=== PATIENT | female | born 1995 | race Caucasian/White ===

== ENCOUNTER → 2018-12-23 | Outpatient (REF) | payer OTHER ==
[2018-12-23 14:35] LABS: BASO # 0.1 10^3/uL (0.0-0.2); BASO % 0.7 % (0.0-1.0); EOS # 0.2 10^3/uL (0.0-0.5); EOS % 2.3 % (0.0-3.0); HEMATOCRIT 40.9 % (36.0-47.0); HEMOGLOBIN 13.4 g/dl (12.0-15.5); LYMPH # 2.3 10^3/uL (1.5-5.0); LYMPH % 33.6 % (24.0-44.0); MEAN CORPUSCULAR HEMOGLOBIN 30.7 pg (27.0-33.0); MEAN CORPUSCULAR HGB CONC 32.8 g/dl (32.0-36.5); MEAN CORPUSCULAR VOLUME 93.8 fl (80.0-96.0); MONO # 0.6 10^3/uL (0.0-0.8); MONO % 8.5 % (0.0-5.0); NEUTROPHILS # 3.8 10^3/uL (1.5-8.5); NEUTROPHILS % 54.6 % (36.0-66.0); PLATELET COUNT, AUTOMATED 345 10^3/uL (150-450); RED BLOOD COUNT 4.36 10^6/uL (4.00-5.40); WHITE BLOOD COUNT 6.9 10^3/uL (4.0-10.0)
[2018-12-23 14:50] LABS: ALBUMIN 4.1 GM/DL (3.2-5.2); ALT/SGPT 19 U/L (12-78); BILIRUBIN,TOTAL 0.4 MG/DL (0.2-1.0); BLOOD UREA NITROGEN 14 MG/DL (7-18); CALCIUM LEVEL 9.7 MG/DL (8.5-10.1); CARBON DIOXIDE LEVEL 28 MEQ/L (21-32); CHLORIDE LEVEL 107 MEQ/L (98-107); CHOLESTEROL LEVEL 151 MG/DL (<200); CHOLESTEROL RISK RATIO 2.745 (<5); COMPLEMENT C3 119 MG/DL (90-180); COMPLEMENT C4 26 MG/DL (10-40); CREATININE FOR GFR 0.69 MG/DL (0.55-1.30); FERRITIN 7 NG/ML (8-252); FREE T4 0.89 NG/DL (0.76-1.46); GLOMERULAR FILTRATION RATE > 60.0 (>60); GLUCOSE, FASTING 83 MG/DL (70-100); HCG, SERUM QUANTITATIVE < 1.0 MIU/ML; HDL CHOLESTEROL 55 MG/DL (>40); IRON (FE) 78 UG/DL (50-170); LDL CHOLESTEROL 79 MG/DL (<100); MAGNESIUM LEVEL 1.8 MG/DL (1.8-2.4); NON-HDL-C 96 MG/DL; RHEUMATOID FACTOR QUANT < 10.0 IU/ML (<15.0); SODIUM LEVEL 140 MEQ/L (136-145); TRIGLYCERIDES LEVEL 87 MG/DL (<150)
[2018-12-23 14:51] LABS: TOTAL 25(OH) VITAMIN D 27.4 NG/ML (30.0-100.0); VITAMIN B12 LEVEL 231 PG/ML (247-911)
[2018-12-23 14:56] LABS: HEMOGLOBIN A1c 5.3 %
[2018-12-23 14:58] LABS: ERYTHROCYTE SEDIMENTATION RATE 6 mm/hr (0-20)
[2018-12-29 14:39] LABS: ANTI DS-DNA AB <1:10 titer (.); ANTINUCLEAR ANTIBODIES DIRECT Negative (Negative)
== END ==
LOC: M LAB REF 14:05
PROVIDERS: ATTEND Nurse Practitioner Family
DX: Z00.01 Encounter for general adult medical examination with abnormal findings (principal); M35.3 Polymyalgia rheumatica; D64.9 Anemia, unspecified

== ENCOUNTER → 2019-01-08 | Outpatient (REF) | payer OTHER, MEDICAID ==
[2019-01-08 19:55] LABS: APPEARANCE, URINE CLOUDY (CLEAR); BACTERIA, URINE AUTO NEGATIVE (NEGATIVE); BILIRUBIN, URINE AUTO NEGATIVE (NEGATIVE); BLOOD, URINE BLOOD 1+ (NEGATIVE); COLOR, URINE YELLOW (YELLOW); GLUCOSE, URINE (UA) AUTO NEGATIVE (NEGATIVE); KETONE, URINE AUTO NEGATIVE (NEGATIVE); LEUKOCYTE ESTERASE, URINE AUTO 2+ (NEGATIVE); MUCUS, URINE SMALL (NEGATIVE); NITRITE, URINE AUTO NEGATIVE (NEGATIVE); PROTEIN, URINE AUTO NEGATIVE (NEGATIVE); RBC, URINE AUTO 2 /HPF (0-3); SPECIFIC GRAVITY URINE AUTO 1.012 (1.002-1.035); SQUAMOUS EPITHELIAL CELL UR AU 24 /HPF (0-6); UROBILINOGEN, URINE AUTO 0.2 mg/dL (0.0-2.0); WBC, URINE AUTO 37 /HPF (0-3)
== END ==
LOC: M LAB REF 18:56
PROVIDERS: ATTEND Nurse Practitioner Family
DX: R30.0 Dysuria (principal)

== ENCOUNTER → 2019-02-06 | Outpatient (REF) | payer OTHER, MEDICAID ==
[2019-02-06 16:22] LABS: URINE PREG TEST NEGATIVE (NEGATIVE)
[2019-02-06 16:24] LABS: APPEARANCE, URINE CLEAR (CLEAR); BACTERIA, URINE AUTO NEGATIVE (NEGATIVE); BILIRUBIN, URINE AUTO NEGATIVE (NEGATIVE); BLOOD, URINE BLOOD 1+ (NEGATIVE); COLOR, URINE YELLOW (YELLOW); GLUCOSE, URINE (UA) AUTO NEGATIVE (NEGATIVE); KETONE, URINE AUTO NEGATIVE (NEGATIVE); LEUKOCYTE ESTERASE, URINE AUTO NEGATIVE (NEGATIVE); MUCUS, URINE SMALL (NEGATIVE); NITRITE, URINE AUTO NEGATIVE (NEGATIVE); PROTEIN, URINE AUTO NEGATIVE (NEGATIVE); RBC, URINE AUTO 2 /HPF (0-3); SPECIFIC GRAVITY URINE AUTO 1.015 (1.002-1.035); SQUAMOUS EPITHELIAL CELL UR AU 4 /HPF (0-6); UROBILINOGEN, URINE AUTO 0.2 mg/dL (0.0-2.0); WBC, URINE AUTO 1 /HPF (0-3)
== END ==
LOC: M LAB REF 16:02
PROVIDERS: ATTEND Physician Assistant Medical
DX: N39.0 Urinary tract infection, site not specified (principal)

== ENCOUNTER 2019-04-22 11:44 | Emergency (ER) | payer OTHER ==
[~2019-04-22] VITALS: Ht 162.6 cm; Wt 55.9 kg
[2019-04-22] MEDS ORDERED: LARI1TAB3 (11:55)
[2019-04-22] MEDS ORDERED: TRAZ-252 (11:55)
[2019-04-22] MEDS ORDERED: LAMO25TA4 (11:55)
[2019-04-22] MEDS ORDERED: ALPR0.25 (11:55)
[2019-04-22] MEDS ORDERED: TAB-TAB3 (11:55)
[2019-04-22] MEDS ORDERED: GABA800T4 (11:55)
[2019-04-22] MEDS ORDERED: D-101000 (11:55)
[2019-04-22 13:45] VITALS: BP 136/93
[2019-04-22] MEDS ORDERED: ALPRAZolam 0.5 MG TAB PO ONE (14:00)
[2019-04-22] MEDS ORDERED: ALPR0.25 PO (14:18)
== END 2019-04-22 14:24 | disposition home or self-care (01) ==
LOC: M ED 11:44
DX: F43.0 Acute stress reaction (principal)

== ENCOUNTER 2019-05-07 11:45 | Outpatient (RCR) | payer OTHER ==
[~2019-05-07 11:45] MED LIST: ALPR0.25; ALPR0.25 PO; D-101000; GABA800T4; LAMO25TA4; LARI1TAB3; TAB-TAB3; TRAZ-252
== END 2019-05-08 ==
LOC: M PT 11:45
PROVIDERS: ATTEND Nurse Practitioner Family
DX: M79.7 Fibromyalgia (principal); M35.3 Polymyalgia rheumatica

== ENCOUNTER 2019-07-18 19:48 | Emergency (ER) | payer OTHER ==
[~2019-07-18] VITALS: Ht 162.6 cm; Wt 52.3 kg
[2019-07-18 19:48] VITALS: BP 119/75
[2019-07-18] MEDS ORDERED: SULF1TAB93 (20:15)
[2019-07-18] MEDS ORDERED: METR-265 (20:15)
[2019-07-18] MEDS ORDERED: PHEN-501 (20:15)
[2019-07-18] MEDS ORDERED: KETOROLAC 60 MG/2 ML VIAL (J1885) IM ONE (20:45)
[2019-07-18 21:00] LABS: HEMATOCRIT 40.9 % (36.0-47.0); HEMOGLOBIN 13.6 g/dl (12.0-15.5); MEAN CORPUSCULAR HEMOGLOBIN 31.1 pg (27.0-33.0); MEAN CORPUSCULAR HGB CONC 33.3 g/dl (32.0-36.5); MEAN CORPUSCULAR VOLUME 93.4 fl (80.0-96.0); PLATELET COUNT, AUTOMATED 329 10^3/uL (150-450); RED BLOOD COUNT 4.38 10^6/uL (4.00-5.40); WHITE BLOOD COUNT 10.1 10^3/uL (4.0-10.0)
[2019-07-18 21:17] LABS: BLOOD UREA NITROGEN 15 MG/DL (7-18); CALCIUM LEVEL 9.7 MG/DL (8.5-10.1); CARBON DIOXIDE LEVEL 27 MEQ/L (21-32); CHLORIDE LEVEL 106 MEQ/L (98-107); CREATININE FOR GFR 0.86 MG/DL (0.55-1.30); GLOMERULAR FILTRATION RATE > 60.0 (>60); GLUCOSE, FASTING 83 MG/DL (70-100); SODIUM LEVEL 138 MEQ/L (136-145)
[2019-07-18 21:20] LABS: HCG, SERUM QUALITATIVE NEGATIVE (NEGATIVE)
[2019-07-18] MEDS ORDERED: NAPROXEN 250 MG TAB PO ONE (21:30)
--- NOTE | 2019-07-18 21:58 | REPVR ---
PROCEDURE INFORMATION: Exam: CT Abdomen And Pelvis Without Contrast Exam date and time: 07/18/2019 9:48 PM Age: 24 years old Clinical indication: Abdominal pain; Flank; Right; Additional info: Right flank pain TECHNIQUE: Imaging protocol: Computed tomography of the abdomen and pelvis without contrast. Radiation optimization: All CT scans at this facility use at least one of these dose optimization techniques: automated exposure control; mA and/or kV adjustment per patient size (includes targeted exams where dose is matched to clinical indication); or iterative reconstruction. COMPARISON: No relevant prior studies available. FINDINGS: Liver: Normal. No mass. Gallbladder and bile ducts: Normal. No calcified stones. No ductal dilation. Pancreas: Normal. No ductal dilation. Spleen: Normal. No splenomegaly. Adrenals: Normal. No mass. Kidneys and ureters: Minimal hyperdensity of the renal pyramids, likely from dehydration. No urolithiasis. Stomach and bowel: Unremarkable. No obstruction. No mucosal thickening. Appendix: Normal appendix. Intraperitoneal space: Small amount of free fluid in the pelvis, most likely physiological pelvic intraperitoneal fluid as a result of patient's premenopausal reproductive status. Vasculature: Unremarkable. No abdominal aortic aneurysm. Lymph nodes: Unremarkable. No enlarged lymph nodes. Bladder: Unremarkable as visualized. Reproductive: Unremarkable as visualized. Bones/joints: Unremarkable. No acute fracture. Soft tissues: Umbilical ornamentation. IMPRESSION: 1. Small amount of free fluid in the pelvis, most likely physiological pelvic intraperitoneal fluid as a result of patient's premenopausal reproductive status. 2. Minimal hyperdensity of the renal pyramids, likely from dehydration. 3. No urolithiasis. 4. Normal appendix. Electronically signed by: Boaz Gil On 07/18/2019 21:58:33 PM
== END 2019-07-18 21:43 | disposition left against medical advice (07) ==
LOC: M ED 19:48
DX: N39.0 Urinary tract infection, site not specified (principal); R31.9 Hematuria, unspecified; R30.0 Dysuria; F17.210 Nicotine dependence, cigarettes, uncomplicated; Z88.0 Allergy status to penicillin; Z79.899 Other long term (current) drug therapy; Z79.3 Long term (current) use of hormonal contraceptives

== ENCOUNTER → 2019-07-20 | Outpatient (REF) | payer OTHER, MEDICAID ==
[~2019-07-20] MED LIST changes: +METR-265; +PHEN-501; +SULF1TAB93
[2019-07-21 13:05] LABS: URINE PREG TEST NEGATIVE (NEGATIVE)
[2019-07-21 13:14] LABS: APPEARANCE, URINE CLOUDY (CLEAR); BACTERIA, URINE AUTO 2+ (NEGATIVE); BILIRUBIN, URINE AUTO NEGATIVE (NEGATIVE); BLOOD, URINE BLOOD 1+ (NEGATIVE); COLOR, URINE YELLOW (YELLOW); GLUCOSE, URINE (UA) AUTO NEGATIVE (NEGATIVE); KETONE, URINE AUTO NEGATIVE (NEGATIVE); LEUKOCYTE ESTERASE, URINE AUTO 3+ (NEGATIVE); MUCUS, URINE SMALL (NEGATIVE); NITRITE, URINE AUTO NEGATIVE (NEGATIVE); PROTEIN, URINE AUTO 2+ mg/dL (NEGATIVE); RBC, URINE AUTO 42 /HPF (0-3); SPECIFIC GRAVITY URINE AUTO 1.018 (1.002-1.035); SQUAMOUS EPITHELIAL CELL UR AU 8 /HPF (0-6); WBC, URINE AUTO TNTC /HPF (0-3)
== END ==
LOC: M LAB REF 12:36
PROVIDERS: ATTEND Nurse Practitioner Family
DX: R30.0 Dysuria (principal)

== ENCOUNTER → 2019-10-22 | Outpatient (CLI) | payer OTHER ==
--- NOTE | 2019-10-22 16:57 | REP ---
REASON: Supervision of normal . PRIORS: None. Transvesical and transvaginal imaging was obtained. Within the endometrial cavity, there is an irregular anechoic structure without increased echoes surrounding it at this time that would be considered consistent with a decidual reaction. No echogenic material is seen in the anechoic structure that would be considered consistent with a pole. No yolk sac is present. The technologist measured the anechoic structure in order to attempt a mean gestational sac diameter, which revealed a 6 week 4 day size. Doppler of this showed no cardiac activity. Evaluation of the maternal adnexal spaces shows no abnormalities. IMPRESSION: There is no evidence of a definite intrauterine at this time. Based on possible mean gestational sac measurements, if an early , then 6 weeks 4 days. Close followup is recommended in order to establish imaging of a viable . A blighted ovum cannot be ruled out at this time.
== END ==
LOC: M PLAIMG 13:10
PROVIDERS: ATTEND Physician Assistant
DX: Z34.80 Encounter for supervision of other normal pregnancy, unspecified trimester (principal)

== ENCOUNTER → 2019-11-20 | Outpatient (REF) | payer OTHER ==
[2019-12-26 10:44] LABS: CHLAMYDIA DNA AMPLIFICATION POSITIVE (NEGATIVE); GC DNA AMPLIFICATION NEGATIVE (NEGATIVE)
[2020-01-07 19:38] LABS: BASO % 0.3 % (0.0-1.0); EOS # 0.2 10^3/uL (0.0-0.5); EOS % 1.6 % (0.0-3.0); HEMOGLOBIN 12.7 g/dl (12.0-15.5); LYMPH # 2.2 10^3/uL (1.5-5.0); LYMPH % 20.5 % (24.0-44.0); MEAN CORPUSCULAR HEMOGLOBIN 32.3 pg (27.0-33.0); MEAN CORPUSCULAR HGB CONC 34.3 g/dl (32.0-36.5); MEAN CORPUSCULAR VOLUME 94.1 fl (80.0-96.0); MONO # 0.8 10^3/uL (0.0-0.8); MONO % 6.9 % (0.0-5.0); NEUTROPHILS # 7.7 10^3/uL (1.5-8.5); NEUTROPHILS % 70.2 % (36.0-66.0); PLATELET COUNT, AUTOMATED 301 10^3/uL (150-450); RED BLOOD COUNT 3.93 10^6/uL (4.00-5.40); WHITE BLOOD COUNT 10.9 10^3/uL (4.0-10.0)
[2020-01-13 18:42] LABS: HEPATITIS C VIRUS ABY INDEX 0.2 INDEX (<0.8); HIV 1&2 SCREEN CENTAUR NEGATIVE (NEGATIVE)
== END ==
LOC: M SFHCWAGY 17:14
PROVIDERS: ATTEND Advanced Practice Midwife
DX: O34.219 Maternal care for unspecified type scar from previous cesarean delivery (principal)

== ENCOUNTER → 2019-12-18 | Outpatient (REF) | payer OTHER | LOC: M LAB REF 16:40 | PROVIDERS: ATTEND Advanced Practice Midwife | DX: Z34.82 Encounter for supervision of other normal pregnancy, second trimester (principal); Z3A.00 Weeks of gestation of pregnancy not specified ==

== ENCOUNTER → 2020-01-20 | Outpatient (REF) | payer OTHER | LOC: M SFHCWAGY 17:04 | PROVIDERS: ATTEND Specialist | DX: Z34.82 Encounter for supervision of other normal pregnancy, second trimester (principal) ==

== ENCOUNTER → 2020-01-26 | Outpatient (CLI) | payer OTHER ==
--- NOTE | 2020-01-27 06:46 | REP ---
INDICATION: ANATOMY COMPARISON: 10/30/2019 TECHNIQUE: Transabdominal obstetrical ultrasound with color Doppler evaluation. FINDINGS: Examination demonstrates a single live intrauterine in variable presentation. motion is identified by technologist. Placenta is noted anterior and grade 0 without evidence for placenta previa or abruption. Amniotic fluid volume is normal. Cervix measures 3.4 cm in length and appears closed. No evidence for nuchal cord. Gestational age by LMP 18 weeks 2 days with BRANDI 06/26/2020. Gestational age by current measurements 18 weeks 3 days with BRANDI 06/26/2019. FHR equals 139 beats per minute. BPD: 4.3 cm 18 weeks 6 days HC: 15.4 cm 18 weeks 3 days AC: 12.7 cm 18 weeks 2 days FL: 2.7 cm 18 weeks 1 day HL: 2.6 cm 18 weeks 2 days HC/AC: 1.22 Estimated weight 231 grams (42ndpercentile). Anatomical assessment demonstrates normal structures including cranium, choroid plexus, cavum, cerebellum/posterior fossa, lungs, diaphragm, stomach, cord insertion/three-vessel cord, kidneys/bladder, spine, and extremities. Limited evaluation of the facial features and heart/ventricular outflow tracts noted. IMPRESSION: 1. Single live intrauterine in variable presentation demonstrating appropriate interval growth and estimated weight. 2. Anatomical limitations as noted above warrant re-evaluation and follow-up. Remainder of the anatomical assessment appears normal. <Electronically signed by Tho Pate > 01/27/20 0622
== END ==
LOC: M WHC 15:25
PROVIDERS: ATTEND Specialist
DX: Z34.82 Encounter for supervision of other normal pregnancy, second trimester (principal)

== ENCOUNTER → 2020-02-15 | Outpatient (CLI) | payer OTHER | LOC: M WHC 09:53 | PROVIDERS: ATTEND Obstetrics & Gynecology | DX: Z36.89 Encounter for other specified antenatal screening (principal); Z3A.21 21 weeks gestation of pregnancy; Z53.9 Procedure and treatment not carried out, unspecified reason ==

== ENCOUNTER → 2020-02-18 | Outpatient (CLI) | payer OTHER ==
--- NOTE | 2020-02-19 05:26 | REP ---
INDICATION: F/U ANATOMY/FACE/VOTS/HEART COMPARISON: 01/26/2020 TECHNIQUE: Transabdominal obstetrical ultrasound with color Doppler evaluation. FINDINGS: Examination demonstrates a single live intrauterine in cephalic presentation. motion is identified by technologist. Placenta is noted anterior and grade 1 without evidence for placenta previa or abruption. Amniotic fluid volume is normal. Cervix measures 3.5 cm in length and appears closed.. Gestational age by LMP 21 weeks 4 days with BRANDI 06/26/2020. Gestational age by current measurements 22 weeks 0 days with BRANDI 06/23/2020. FHR equals 147 beats per minute. Estimated weight 453 grams (56thpercentile). Anatomical assessment demonstrates normal structures including cranium, facial features, four-chamber heart/ventricular outflow tracts, stomach, cord insertion/three-vessel cord, kidneys/bladder. IMPRESSION: Single live intrauterine in cephalic presentation demonstrating appropriate estimated weight and growth. In conjunction with prior examination anatomical assessment is complete and normal. <Electronically signed by Tho Pate > 02/19/20 [id number]
== END ==
LOC: M WHC 10:38
PROVIDERS: ATTEND Obstetrics & Gynecology
DX: Z34.92 Encounter for supervision of normal pregnancy, unspecified, second trimester (principal); Z3A.22 22 weeks gestation of pregnancy

== ENCOUNTER → 2020-03-14 | Outpatient (REF) | payer OTHER | LOC: M PLALAB 11:31 | PROVIDERS: ATTEND Obstetrics & Gynecology | DX: Z3A.25 25 weeks gestation of pregnancy (principal) ==

== ENCOUNTER → 2020-04-12 | Outpatient (REF) | payer OTHER ==
[2020-04-12 13:34] LABS: HEMATOCRIT 32.2 % (36.0-47.0); HEMOGLOBIN 10.7 g/dl (12.0-15.5); MEAN CORPUSCULAR HEMOGLOBIN 32.3 pg (27.0-33.0); MEAN CORPUSCULAR HGB CONC 33.2 g/dl (32.0-36.5); MEAN CORPUSCULAR VOLUME 97.3 fl (80.0-96.0); PLATELET COUNT, AUTOMATED 269 10^3/uL (150-450); RED BLOOD COUNT 3.31 10^6/uL (4.00-5.40)
== END ==
LOC: M PLALAB 09:28
PROVIDERS: ATTEND Obstetrics & Gynecology
DX: Z3A.25 25 weeks gestation of pregnancy (principal)

== ENCOUNTER → 2020-05-27 | Outpatient (CLI) | payer OTHER | LOC: M WHC 13:49 | PROVIDERS: ATTEND Obstetrics & Gynecology | DX: O24.419 Gestational diabetes mellitus in pregnancy, unspecified control (principal); Z3A.00 Weeks of gestation of pregnancy not specified ==

== ENCOUNTER → 2020-05-27 | Outpatient (REF) | payer OTHER | LOC: M SFHCWAGY 16:56 | PROVIDERS: ATTEND Obstetrics & Gynecology | DX: Z34.83 Encounter for supervision of other normal pregnancy, third trimester (principal); Z3A.35 35 weeks gestation of pregnancy | CPT/HCPCS: 87081; 87186; G0463 ==

== ENCOUNTER → 2020-06-01 | Outpatient (REF) | payer OTHER | LOC: M SFHCPLAZ 16:37 | PROVIDERS: ATTEND Advanced Practice Midwife | DX: Z53.9 Procedure and treatment not carried out, unspecified reason (principal); R30.0 Dysuria ==

== ENCOUNTER → 2020-06-14 | Outpatient (CLI) | payer MEDICARE, OTHER ==
--- NOTE | 2020-06-14 17:00 | REP ---
INDICATION: GESTATIONAL DIABETES COMPARISON: 02/18/2020 TECHNIQUE: Transabdominal obstetrical ultrasound with color Doppler evaluation. FINDINGS: Examination demonstrates a single live intrauterine in cephalic presentation. motion is identified by technologist. Placenta is noted anterior and grade 3 without evidence for placenta previa or abruption. Amniotic fluid volume is normal. Cervix measures 3.4 cm in length and appears closed.. Gestational age by LMP and 1st ultrasound 30 weeks 2 days with BRANDI 06/26/2020. Gestational age by current measurements 37 weeks 5 days with BRANDI 06/30/2020. FHR equals 138 beats per minute. BPD: 9.4 cm at 30 weeks 0 days HC: 33.5 cm at 38 weeks 3 days AC: 32.7 cm at 36 weeks 4 days FL: 7.4 cm at 37 weeks 6 days HL: 6.5 cm at 37 weeks 5 days HC/AC: 1.03 Estimated weight 3161 grams (38thpercentile). KASH: 8.8 cm (7.3-23.5) IMPRESSION: Single live advanced gestation in cephalic presentation demonstrating appropriate estimated weight. <Electronically signed by Tho Pate > 06/14/20 [id number]
== END ==
LOC: M WHC 15:29
PROVIDERS: ATTEND Obstetrics & Gynecology
DX: O24.419 Gestational diabetes mellitus in pregnancy, unspecified control (principal); Z3A.37 37 weeks gestation of pregnancy

== ENCOUNTER 2020-06-21 03:36 | Inpatient (IN) | payer OTHER ==
[~2020-06-21] VITALS: Ht 165.1 cm; Wt 75.3 kg
[2020-06-21] VITALS (53 sets, daily range): BP systolic 97–146; BP diastolic 52–89
[2020-06-21] MEDS ORDERED: LR 1,000 ML IV SCH ×2 (04:51→05:24)
[2020-06-21] MEDS ORDERED: LACTATED RINGER'S 1000 ML IV STA ×2 (04:51→05:24)
[2020-06-21 05:08] LABS: HEMATOCRIT 34.7 % (36.0-47.0); HEMOGLOBIN 11.7 g/dl (12.0-15.5); MEAN CORPUSCULAR HEMOGLOBIN 32.7 pg (27.0-33.0); MEAN CORPUSCULAR HGB CONC 33.7 g/dl (32.0-36.5); MEAN CORPUSCULAR VOLUME 96.9 fl (80.0-96.0); PLATELET COUNT, AUTOMATED 280 10^3/uL (150-450); RED BLOOD COUNT 3.58 10^6/uL (4.00-5.40); WHITE BLOOD COUNT 19.2 10^3/uL (4.0-10.0)
[2020-06-21] MEDS ORDERED: VANCOMYCIN 1000MG/20ML VIAL As Ordered ONE (05:24)
--- NOTE | 2020-06-21 05:59 | HPEPDOC ---
Obstetrical History & Physical General Date of Admission 06/21/20 Primary Care Physician: RIA TREADWELL CNM History of Present Illness Patient is a 25-year-old female who is a at 39.1 weeks gestation with an BRANDI of 06/26/20 based off of her first trimester ultrasound. She initiated care in her first trimester at [facility]. Her has been complicated by a history of a prior section for placental abruption, smoking, chlamydia diagnosed during , and [id number] controlled. She presents to L&D with complaints of SROM that is clear and contractions that are painful. She reports active movement. She denies vaginal bleeding. Chief Complaint: Rupture of membranes Information Provided By: Patient Age: 25 : 4 Term: 3 Pre-term: 0 Abortions: 0 Livin Care Care: Good Care Dating Final EDC: Jun 26, 2020 Final EDC by: 1st trimester (US) 1st Trimester Date: Nov 20, 2019 EGA at Admission: 39.1 Antepartum Course Diagnos(e)s prior section A1GDM chlamydia treated in antepartum Height (inches): 65 Admission Weight (lbs.): 165 Past Medical History Past Obstetrical History #1: Past Obstetrical History: Primgravida Date of Delivery: Jan 27, 2010 Gestation: 42 Type of Delivery: Spontaneous Vaginal Del. Sex of Infant: Female (7 lbs 15 oz) Complications: No Past Obstetrical History #2: Past Obstetrical History: Multigravida Date of Delivery: May 29, 2015 Gestation: 40 Type of Delivery: Spontaneous Vaginal Del. 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 BREAST: . ABDOMEN: Gravid and non-tender to touch. FETUS: Is vertex (VTX) by sterile vaginal examination (SVE), fetus is vertex (VTX) by Connor. LUNGS: Clear to auscultation (CTA). EXTREMITIES: No edema. No clonus. Deep tendon reflexes (DTRs) + 2. Laboratory Data 24H LABS Laboratory Tests 2 06/21/20 04:53: Nucleated Red Blood Cells % (auto) 0.0 CBC/BMP Laboratory Tests 06/21/20 04:53 Urine Culture: No Growth Pertinent Laboratoy Data Blood Type: A+ RBC Antibody Screen: Negative HIV: Negative Hepatitis B: Negative Hepatitis C: Negative Rapid Plasma Reagin: Nonreactive Rubella: Nonreactive Chlamydia/Gonorrhea: Negative Group B Streptococcus: Positive Glucose Tolerance Test: 137 Vaginal Examination Dilation: 4 cm Effacement: 80% Station: -1 Cervical Consistency: Soft Cervical Position: Anterior Presentation: Cephalic presentation Position: Vertex (occiput) Assessment Heart Rate (FHR): 145 Variability: Moderate Accelerations: Positive Decelerations: None Tocometer Contractions: Yes Frequency: regular Strength: palpated as moderate Multi-drug resistant Organism: No history of MDRO Assessment/Plan Assessment IUP at 39.1 weeks gestation GBS positive prior section-desires TOLAC Category I FHR tracing SROM Plan Admit to L&D. Patient desires TOLAC. Reviewed risks, benefits and alternatives. She desire to proceed with vaginal delivery. OOB ad rony. Diet: clears. Group B Streptococcus (GBS) positive. Labs and intravenous (IV) per unit protocol. Dr. Acevedo aware of patient being in department. Patient desires an epidural. Anesthesia notified. Lactated Ringers (LR): Bolus 800 mL, then at 125 mL/hr. Anticipate cervical ripening. C-S as appropriate. RIA TREADWELL CNM Jun 21, 2020 05:59
[2020-06-21] MEDS ORDERED: VANCOMYCIN HCL 1,000 MG, VIAL MATE ADAPTER 1 EACH in NS 250 ML IV SCH (06:00)
[2020-06-21] MEDS ORDERED: FENTANYL 2MCG/ML ROPIVACAINE 0.2% IN 0.9% NACL 100ML IVBAG As Ordered ONE (06:13)
[2020-06-21] MEDS ORDERED: LACTATED RINGER'S 1000 ML IV PRN (08:20)
[2020-06-21] MEDS ORDERED: EPIDURAL COMMENT XX SCH (08:20)
[2020-06-21] MEDS ORDERED: ONDANSETRON 4MG/2ML VIAL IV PRN (08:20)
[2020-06-21] MEDS ORDERED: NALOXONE INJ 0.4MG/1ML VIAL (J2310 PER 1MG) IV PRN (08:20)
[2020-06-21] MEDS ORDERED: REFRIGERATOR IV KEYS XX PRN (08:20)
[2020-06-21] MEDS ORDERED: ePHEDrine SULFATE 25 MG/5 ML(5MG/ML) SYRINGE IV PRN (08:20)
[2020-06-21] MEDS ORDERED: EPIDURAL/PCA KEYS XX PRN (08:20)
[2020-06-21] MEDS ORDERED: diphenhydrAMINE 50MG/ML VIAL (J1200) IV PRN (08:20)
[2020-06-21] MEDS ORDERED: FENTANYL/ROPIVACAINE/NACL BAG 100 ML EPIDURAL SCH (08:20)
[2020-06-21] MEDS ORDERED: ONDANSETRON 4MG/2ML VIAL As Ordered ONE (08:28)
[2020-06-21] MEDS: PRENATAL VITAMINS CHEWABLE TABLET PO SCH (09:00)
[2020-06-21] MEDS ORDERED: OXYTOCIN 30 UNITS IN 0.9% NaCl 500ML IV BAG (J2590) As Ordered ONE (13:50)
[2020-06-21] MEDS ORDERED: DOCUSATE SODIUM 100MG CAPSULE PO PRN (14:50)
[2020-06-21] MEDS ORDERED: RHOGAM 300 MCG (1500 IU) INJ (J2790) IM SCH (14:50)
[2020-06-21] MEDS ORDERED: DIBUCAINE 1% OINTMENT 30GM TOP PRN (14:50)
[2020-06-21] MEDS ORDERED: MEASLES,MUMPS,RUBELLA VACCINE INJ (MMR-II) (90707) SC SCH (14:50)
[2020-06-21] MEDS ORDERED: IBUPROFEN 600MG TAB PO PRN (14:50)
[2020-06-21] MEDS ORDERED: ACETAMINOPHEN TAB 650MG DOSE (2X325MG) PO PRN (14:50)
[2020-06-21] MEDS ORDERED: METHYLERGONOVINE MALEATE 0.2 MG/ML VIAL (J2210) IM ONE (14:50)
[2020-06-21] MEDS ORDERED: OXYTOCIN DRIP 30 UNITS in IV 1 EA IV SCH (14:50)
--- NOTE | 2020-06-21 15:03 | DNPDOC ---
[facility] Delivery Note Delivery Note DATE OF DELIVERY: 06/21/2020 PREDELIVERY DIAGNOSIS: 39w1d spontaneous rupture of membranes, active labor, history of prior section POST DELIVERY DIAGNOSIS: Delivered. 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 Evelyn Acevedo MD ANESTHESIA: epidural ESTIMATED BLOOD LOSS: 200 mL. FINDINGS: 7 pound 9 ounce (3430g) female , Score 9/9 DELIVERY SUMMARY: Adis is a 25yo [id number] s/p uncomplicated at 1354 on 06/21/20 after presenting with SROM/active labor at 39w1d. She was 4/80/-2 on admission and received an epidural. She progressed to C/C/0, at which point she began to push. With excellent maternal effort, delivered OA, restituted JORDAN. Right anterior shoulder delivered followed by posterior shoulder and corpus. Infant vigorous with spontaneous cry, apgars 9/9, placed on maternal abdomen and nose/mouth suctioned with bulb suction. After 2 min, cord clamped x2 and cut by FOB. With uterine massage and traction on the cord, placenta delivered spontaneously and intact with 3 vessel centrally inserted cord. Pitocin IV given per protocol. Fundus firm at u-2cm. Inspection of perineum and vagina revealed no lacerations, just some superficial abrasions of the inner labia that were hemostatic with no need for repair. All counts correct x2. Mom and were doing well when I left the room. MD Kristina Reynolds Katrina D MD Jun 21, 2020 15:03
[2020-06-21] MEDS: IBUPROFEN 800 MG TAB PO PRN (17:19)
[2020-06-22] MEDS: IBUPROFEN 800 MG TAB PO PRN ×2 (01:40→14:55)
[2020-06-22 05:54] VITALS: BP 107/56
[2020-06-22] MEDS: PRENATAL VITAMINS CHEWABLE TABLET PO SCH (08:12)
[2020-06-22] MEDS: ACETAMINOPHEN 500 MG TAB PO PRN ×2 (08:13→14:55)
--- NOTE | 2020-06-22 09:24 | IPNPDOC ---
Progress Note Date of Service: Jun 22, 2020 Day#: 1 Progress Note PPD 1 SUBJECT: Adis is a 25yo [id number] s/p uncomplicated at 1354 on 06/21/20 after presenting with SROM/active labor at 39w1d, doing well day # 1. She has been ambulating, voiding spontaneously without issue and tolerating regular diet. Breast feeding without issue. Reports lochia is like a normal period. No f/c/n/v/CP/SOB. OBJECTIVE: VITAL SIGNS: Within normal limits, afebrile. Alert and oriented times three. Abdomen: Fundus firm at U-2. Soft, NTTP. Extremities: no pain with palpation of calves ASSESSMENT: Adis is a 25yo [id number] s/p uncomplicated at 1354 on 06/21/20 after presenting with SROM/active labor at 39w1d, doing well day # 1. Vitals within normal limits, afebrile, hemodynamically stable with no evidence of infection. PLAN: 1. Discharge to home today if baby is able to be discharged 2. Tylenol and Motrin for pain. 3. Encourage breast feeding and ambulation. 4. Minipill for contraception per request, discussed to take at same time every day 5. Routine PP visit in 6 weeks in clinic. 6. Discussed return precautions at length. Evelyn Acevedo MD VS, I&O, 24H, Fishbone Vital Signs/I&O Vital Signs Date Time Temp Pulse Resp B/P (MAP) Pulse Ox O2 Delivery O2 Flow Rate FiO2 06/22/20 05:54 97.6 79 18 107/56 (73) 100 Room Air l I&O- Last 24 Hours up to 6 AM 06/22/20 06:00 Intake Total 4966 ml Output Total 1000 ml Balance 3966 ml Evelyn Acevedo MD Jun 22, 2020 09:24
--- NOTE | 2020-06-22 09:26 | DS.PDOC ---
Discharge Summary General Date of Admission Jun 21, 2020 at 05:28 Date of Discharge 06/22/20 Attending Physician: Evelyn Acevedo MD Discharge Summary PROCEDURES PERFORMED DURING STAY: ADMITTING DIAGNOSES: 1. active labor at term with hx of prior section 2. A1GDM DISCHARGE DIAGNOSES: 1. active labor at term with hx of prior section 2. A1GDM COMPLICATIONS/CHIEF COMPLAINT: Labor Check. HISTORY OF PRESENT ILLNESS/HOSPITAL COURSE: Adis is a 25yo [id number] s/p uncomplicated at 1354 on 06/21/20 after presenting with SROM/active labor at 39w1d, doing well day # 1. She has had a benign course. At time of discharge, vitals within normal limits, afebrile, hemodynamically stable with no evidence of infection. DISCHARGE MEDICATIONS: Please see below. ALLERGIES: Please see below. PHYSICAL EXAMINATION ON DISCHARGE: VITAL SIGNS: Within normal limits, afebrile. Alert and oriented times three. Abdomen: Fundus firm at U-2. Soft, NTTP. Extremities: no pain with palpation of calves LABORATORY DATA: Please see below. DIET: regular DISCHARGE PLAN/INSTRUCTIONS: 1. Discharge to home today if baby is able to be discharged 2. Tylenol and Motrin for pain. 3. Encourage breast feeding and ambulation. 4. Minipill for contraception per request, discussed to take at same time every day 5. Routine PP visit in 6 weeks in clinic. 6. Discussed return precautions at length. DISCHARGE CONDITION: Stable TIME SPENT ON DISCHARGE: Greater than 20 minutes. Vital Signs/I&Os Vital Signs Date Time Temp Pulse Resp B/P (MAP) Pulse Ox O2 Delivery O2 Flow Rate FiO2 06/22/20 05:54 97.6 79 18 107/56 (73) 100 Room Air I&O- Last 24 Hours up to 6 AM 06/22/20 06:00 Intake Total 4966 ml Output Total 1000 ml Balance 3966 ml Allergies Coded Allergies: Penicillins (Verified Allergy, Unknown, 04/22/19) Evelyn Acevedo MD Jun 22, 2020 09:26
[2020-06-22] MEDS ORDERED: ACET-683 PO (09:28)
[2020-06-22] MEDS ORDERED: IBUP80TA PO (09:28)
[2020-06-22] MEDS ORDERED: DOK1CAP7 PO (09:28)
== END 2020-06-22 18:10 | disposition home or self-care (01) | DRG 807 ==
LOC: M LDO 03:36 → M LDI 05:28 → M OBS 16:31
PROVIDERS: ADMIT Advanced Practice Midwife; ATTEND Obstetrics & Gynecology
PROC: 10E0XZZ Delivery of Products of Conception, External Approach (ICD-10-PCS; principal; 2020-06-21)
DX: O34.211 Maternal care for low transverse scar from previous cesarean delivery (principal); Z37.0 Single live birth; O99.824 Streptococcus B carrier state complicating childbirth; Z3A.39 39 weeks gestation of pregnancy; O99.334 Smoking (tobacco) complicating childbirth; F17.210 Nicotine dependence, cigarettes, uncomplicated; O24.420 Gestational diabetes mellitus in childbirth, diet controlled

== ENCOUNTER → 2021-02-16 | Outpatient (CLI) | payer OTHER ==
[~2021-02-16] MED LIST changes: +ACET-683 PO; +BACTDSTA; +DOK1CAP4 PO; +IBUP80TA PO; -SULF1TAB93
[2021-02-16 14:21] LABS: HEMATOCRIT 40.3 % (36.0-47.0); HEMOGLOBIN 13.6 g/dl (12.0-15.5); MEAN CORPUSCULAR HEMOGLOBIN 31.1 pg (27.0-33.0); MEAN CORPUSCULAR HGB CONC 33.7 g/dl (32.0-36.5); MEAN CORPUSCULAR VOLUME 92.2 fl (80.0-96.0); PLATELET COUNT, AUTOMATED 402 10^3/uL (150-450); RED BLOOD COUNT 4.37 10^6/uL (4.00-5.40); WHITE BLOOD COUNT 11.5 10^3/uL (4.0-10.0)
[2021-02-16 15:54] LABS: GC DNA AMPLIFICATION NEGATIVE (NEGATIVE)
[2021-02-16 17:49] LABS: HEPATITIS C VIRUS ABY INDEX 0.1 INDEX (<0.8); HIV 1&2 SCREEN CENTAUR NEGATIVE (NEGATIVE)
== END ==
LOC: M LAB 12:30
PROVIDERS: ATTEND Obstetrics & Gynecology
DX: Z34.81 Encounter for supervision of other normal pregnancy, first trimester (principal)

== ENCOUNTER → 2021-02-17 | Outpatient (CLI) | payer OTHER | LOC: M LAB 09:33 | PROVIDERS: ATTEND Obstetrics & Gynecology | DX: Z36.89 Encounter for other specified antenatal screening (principal); Z3A.08 8 weeks gestation of pregnancy ==

== ENCOUNTER → 2021-04-24 | Outpatient (CLI) | payer OTHER | LOC: M WHC 12:00 | PROVIDERS: ATTEND Advanced Practice Midwife | DX: Z36.9 Encounter for antenatal screening, unspecified (principal); Z3A.20 20 weeks gestation of pregnancy ==

== ENCOUNTER → 2021-07-18 | Outpatient (CLI) | payer OTHER ==
[2021-07-18 13:44] LABS: HEMATOCRIT 32.3 % (36.0-47.0); HEMOGLOBIN 10.8 g/dl (12.0-15.5); MEAN CORPUSCULAR HGB CONC 33.4 g/dl (32.0-36.5); MEAN CORPUSCULAR VOLUME 95.8 fl (80.0-96.0); PLATELET COUNT, AUTOMATED 295 10^3/uL (150-450); RED BLOOD COUNT 3.37 10^6/uL (4.00-5.40); WHITE BLOOD COUNT 13.1 10^3/uL (4.0-10.0)
[2021-07-18 15:01] LABS: GC DNA AMPLIFICATION NEGATIVE (NEGATIVE)
== END ==
LOC: M PLALAB 11:11
PROVIDERS: ATTEND Specialist
DX: Z34.82 Encounter for supervision of other normal pregnancy, second trimester (principal)

== ENCOUNTER → 2021-08-17 | Outpatient (REF) | payer OTHER | LOC: M PLALAB 11:07 | PROVIDERS: ATTEND Obstetrics & Gynecology | DX: Z36.85 Encounter for antenatal screening for Streptococcus B (principal); Z3A.36 36 weeks gestation of pregnancy ==

== ENCOUNTER → 2021-08-23 | Outpatient (CLI) | payer OTHER | LOC: M WHC 08:52 | PROVIDERS: ATTEND Obstetrics & Gynecology | DX: O99.810 Abnormal glucose complicating pregnancy (principal) ==

== ENCOUNTER 2021-09-12 22:50 | Outpatient (CLI) | payer OTHER ==
[~2021-09-12] VITALS: Ht 165.1 cm; Wt 79.5 kg
[2021-09-12] MEDS ORDERED: AZIT100S12 PO (23:02)
[2021-09-12] MEDS ORDERED: PRENTAB9 PO (23:02)
[2021-09-12 23:03] VITALS: BP 173/99
[2021-09-12] MEDS ORDERED: HOME MED LIST COMPLETE! XX SCH (23:05)
[2021-09-12 23:08] VITALS: BP 158/80
[2021-09-12 23:22] VITALS: BP 192/99
[2021-09-12 23:25] VITALS: BP 117/61
[2021-09-12 23:46] VITALS: BP 122/73
== END 2021-09-13 00:18 | disposition home or self-care (01) ==
LOC: M LDO 22:50
PROVIDERS: ATTEND Obstetrics & Gynecology
DX: O36.8130 Decreased fetal movements, third trimester, not applicable or unspecified (principal); Z3A.40 40 weeks gestation of pregnancy
CPT/HCPCS: 59025; G0378; G0463

== ENCOUNTER 2021-09-15 22:26 | Inpatient (IN) | payer OTHER ==
[~2021-09-15] VITALS: Ht 165.1 cm; Wt 79.9 kg
[~2021-09-15 22:26] MED LIST changes: +AZIT100S12 PO; +PRENTAB9 PO
[2021-09-15] MEDS ORDERED: ACET325C5 PO (22:44)
[2021-09-15 22:49] VITALS: BP 126/80
[2021-09-15] MEDS ORDERED: LACTATED RINGER'S 1000 ML IV STA (23:14)
[2021-09-15] MEDS ORDERED: OXYTOCIN DRIP 30 UNITS in IV 1 EA IV PRN (23:15)
[2021-09-15] MEDS ORDERED: LR 1,000 ML IV SCH (23:15)
[2021-09-15] MEDS ORDERED: TRANEXAMIC ACID INJection 1,000 MG in NS 100 ML IV PRN (23:15)
[2021-09-15] MEDS ORDERED: METHYLERGONOVINE MALEATE 0.2 MG/ML VIAL (J2210) IM PRN (23:15)
[2021-09-15] MEDS ORDERED: CARBOPROST TROMETHAMINE 250 MCG/ML AMP IM PRN (23:15)
[2021-09-15] MEDS ORDERED: LIDOCAINE 1% MDV 20ML VIAL INFIL PRN (23:15)
[2021-09-15 23:30] LABS: HEMOGLOBIN 10.9 g/dl (12.0-15.5); MEAN CORPUSCULAR HEMOGLOBIN 32.1 pg (27.0-33.0); MEAN CORPUSCULAR HGB CONC 34.1 g/dl (32.0-36.5); MEAN CORPUSCULAR VOLUME 94.1 fl (80.0-96.0); PLATELET COUNT, AUTOMATED 288 10^3/uL (150-450); WHITE BLOOD COUNT 13.6 10^3/uL (4.0-10.0)
[2021-09-15] MEDS ORDERED: VANCOMYCIN HCL 1,000 MG, VIAL MATE ADAPTER 1 EACH in NS 250 ML IV SCH (23:30)
[2021-09-15] MEDS ORDERED: ePHEDrine SULFATE 25 MG/5 ML(5MG/ML) SYRINGE IVP PRN (23:35)
[2021-09-15] MEDS ORDERED: diphenhydrAMINE 50MG/ML VIAL (J1200) IV PRN (23:35)
[2021-09-15] MEDS ORDERED: LR 500 ML IV PRN (23:35)
[2021-09-15] MEDS ORDERED: FENTANYL/ROPIVACAINE/NACL BAG 100 ML EPIDURAL SCH (23:35)
[2021-09-15] MEDS ORDERED: NALOXONE INJ 0.4MG/1ML VIAL (J2310 PER 1MG) IV PRN (23:35)
[2021-09-15] MEDS ORDERED: ONDANSETRON 4MG/2ML VIAL IV PRN (23:35)
[2021-09-15] MEDS ORDERED: EPIDURAL/PCA KEYS XX PRN (23:35)
[2021-09-15 23:38] VITALS: BP 131/80
[2021-09-15 23:43] VITALS: BP 135/79
[2021-09-15 23:48] VITALS: BP 138/83
[2021-09-15 23:54] VITALS: BP 130/75
[2021-09-15 23:59] VITALS: BP 135/75
[2021-09-16] VITALS (15 sets, daily range): BP systolic 108–138; BP diastolic 52–80
[2021-09-16] MEDS ORDERED: DIBUCAINE 1% OINTMENT 30GM TOP PRN (03:00)
[2021-09-16] MEDS ORDERED: ACETAMINOPHEN TAB 650MG DOSE (2X325MG) PO PRN (03:00)
[2021-09-16] MEDS ORDERED: ANUSOL HC CREAM 30GM TOP PRN (03:00)
[2021-09-16] MEDS ORDERED: DOCUSATE SODIUM 100MG CAPSULE PO PRN (03:00)
[2021-09-16] MEDS ORDERED: METHYLERGONOVINE MALEATE 0.2 MG TAB PO PRN (03:00)
[2021-09-16] MEDS ORDERED: RHOGAM 300 MCG (1500 IU) INJ (J2790) IM SCH (03:00)
[2021-09-16] MEDS ORDERED: MOM 30ML SUSPENSION UDC PO PRN (03:00)
[2021-09-16] MEDS ORDERED: IBUPROFEN 600MG TAB PO PRN (03:00)
[2021-09-16] MEDS: PRENATAL VITAMINS CHEWABLE TABLET PO SCH (07:38)
[2021-09-16] MEDS: IBUPROFEN 800 MG TAB PO PRN ×2 (07:38→15:05)
[2021-09-16] MEDS ORDERED: CALCIUM CARBONATE 500 MG CHEW U/D PO PRN (08:30)
[2021-09-16] MEDS: ACETAMINOPHEN 500 MG TAB PO PRN (12:58)
[2021-09-17] MEDS: IBUPROFEN 800 MG TAB PO PRN ×2 (04:43→12:16)
[2021-09-17 05:38] VITALS: BP 119/60
[2021-09-17] MEDS: PRENATAL VITAMINS CHEWABLE TABLET PO SCH (07:18)
[2021-09-17] MEDS: ACETAMINOPHEN 500 MG TAB PO PRN (07:19)
[2021-09-17] MEDS ORDERED: IBUP-1022 PO (09:11)
[2021-09-17] MEDS ORDERED: COLA100C5 PO (09:11)
[2021-09-17] MEDS ORDERED: ACET-683 PO (09:11)
[2021-09-17] MEDS ORDERED: NORE0.353 PO (09:11)
[2021-09-17] MEDS ORDERED: NICO1DIS12 TOP (12:37)
[2021-09-18] MEDS ORDERED: MEASLES,MUMPS,RUBELLA VACCINE INJ (MMR-II) (90707) SC.IMMUN ONE (09:00)
== END 2021-09-17 12:30 | disposition home or self-care (01) | DRG 807 ==
LOC: M LDO 22:26 → M LDI 23:10 → M OBS 09-16 04:30
PROVIDERS: ADMIT Advanced Practice Midwife; ATTEND Advanced Practice Midwife
PROC: 10E0XZZ Delivery of Products of Conception, External Approach (ICD-10-PCS; principal; 2021-09-16)
DX: O34.211 Maternal care for low transverse scar from previous cesarean delivery (principal); Z37.0 Single live birth; O99.824 Streptococcus B carrier state complicating childbirth; Z3A.40 40 weeks gestation of pregnancy

== ENCOUNTER → 2021-10-21 | Outpatient (CLI) | payer OTHER ==
[~2021-10-21] MED LIST changes: +ACET325C5 PO; +COLA100C5 PO; +IBUP-1022 PO; +NICO1DIS12 TOP; +NORE0.353 PO
== END ==
LOC: M RAD 09:17
PROVIDERS: ATTEND Physician Assistant
DX: S99.921A Unspecified injury of right foot, initial encounter (principal)

== ENCOUNTER → 2022-01-05 | Outpatient (CLI) | payer OTHER | LOC: M RAD 15:42 | PROVIDERS: ATTEND Physician Assistant | DX: S69.90XA Unspecified injury of unspecified wrist, hand and finger(s), initial encounter (principal); W18.30XA Fall on same level, unspecified, initial encounter; Y92.009 Unspecified place in unspecified non-institutional (private) residence as the place of occurrence of the external cause ==

== ENCOUNTER → 2022-02-14 | Outpatient (REF) | payer OTHER ==
[2022-02-14 13:27] LABS: APPEARANCE, URINE MANUAL HAZY (CLEAR); BILIRUBIN, URINE MANUAL NEGATIVE (NEGATIVE); BLOOD URINE MANUAL POSITIVE (NEGATIVE); COLOR, URINE MANUAL YELLOW (YELLOW); GLUCOSE, URINE (UA) MANUAL NEGATIVE (NEGATIVE); KETONE, URINE MANUAL NEGATIVE (NEGATIVE); LEUKOCYTE ESTERASE, URINE MAN POSITIVE (NEGATIVE); NITRITE, URINE MANUAL TRACE (NEGATIVE); PROTEIN, URINE MANUAL NEGATIVE (NEGATIVE); UROBILINOGEN, URINE MANUAL NORMAL (NORMAL)
[2022-02-14 14:06] LABS: RBC, URINE TNTC /hpf (0-3); WBC, URINE 20-30 /hpf (0-3)
[2022-02-14 14:07] LABS: AMORPHOUS SEDIMENT, URINE MOD AMOUNT (NEGATIVE); BACTERIA, URINE LARGE AMOUNT; HYALINE CAST, URINE NONE SEEN /lpf (0-1); SQUAMOUS EPITHELIAL CELL URINE LARGE AMOUNT /hpf (SMALL AMT)
== END ==
LOC: M LAB REF 12:23
PROVIDERS: ATTEND Physician Assistant Medical
DX: N39.0 Urinary tract infection, site not specified (principal)

== ENCOUNTER → 2022-07-20 | Outpatient (CLI) | payer OTHER ==
[2022-07-20 14:18] LABS: BASO # 0.1 10^3/uL (0.0-0.2); BASO % 0.3 % (0.0-1.0); EOS # 0.4 10^3/uL (0.0-0.5); EOS % 2.9 % (0.0-3.0); HEMATOCRIT 42.9 % (36.0-47.0); HEMOGLOBIN 13.8 g/dl (12.0-15.5); LYMPH # 2.7 10^3/uL (1.5-5.0); LYMPH % 17.5 % (24.0-44.0); MEAN CORPUSCULAR HEMOGLOBIN 30.1 pg (27.0-33.0); MEAN CORPUSCULAR HGB CONC 32.2 g/dl (32.0-36.5); MEAN CORPUSCULAR VOLUME 93.5 fl (80.0-96.0); MONO # 1.1 10^3/uL (0.0-0.8); NEUTROPHILS # 11.1 10^3/uL (1.5-8.5); NEUTROPHILS % 71.8 % (36.0-66.0); PLATELET COUNT, AUTOMATED 415 10^3/uL (150-450); RED BLOOD COUNT 4.59 10^6/uL (4.00-5.40); WHITE BLOOD COUNT 15.4 10^3/uL (4.0-10.0)
[2022-07-20 14:35] LABS: ERYTHROCYTE SEDIMENTATION RATE 54 mm/hr (0-20)
[2022-07-20 14:39] LABS: ALBUMIN 4.1 G/DL (3.2-5.2); ALKALINE PHOSPHATASE 129 U/L (46-116); ALT/SGPT 23 U/L (7.0-40); AST/SGOT 16 U/L (<34); BILIRUBIN,TOTAL 0.6 MG/DL (0.3-1.2); BLOOD UREA NITROGEN 17 MG/DL (9-23); CALCIUM LEVEL 9.7 MG/DL (8.5-10.1); CARBON DIOXIDE LEVEL 29 MMOL/L (20-31); CHLORIDE LEVEL 106 MMOL/L (98-107); CREATININE FOR GFR 0.54 MG/DL (0.55-1.30); GLOMERULAR FILTRATION RATE > 60.0 (>60); GLUCOSE, FASTING 90 MG/DL (60-100); POTASSIUM SERUM 3.9 MMOL/L (3.5-5.1); SODIUM LEVEL 140 MMOL/L (136-145); TOTAL PROTEIN 7.9 G/DL (5.7-8.2)
[2022-07-20 14:41] LABS: FREE T4 0.93 NG/DL (0.89-1.76)
[2022-07-20 14:42] LABS: THYROID STIMULATING HORMONE 0.944 uIU/ML (0.55-4.78)
[2022-07-21 16:11] LABS: EBV VIRAL CAPSID AG IgM <36.0 U/mL (0.0-35.9)
== END ==
LOC: M WUC 09:33
PROVIDERS: ATTEND Physician Assistant
DX: L04.0 Acute lymphadenitis of face, head and neck (principal); J02.9 Acute pharyngitis, unspecified

== ENCOUNTER → 2022-07-20 | Outpatient (CLI) | payer OTHER ==
[2022-07-20 14:13] LABS: APPEARANCE, URINE CLEAR (CLEAR); BACTERIA, URINE AUTO NEGATIVE (NEGATIVE); BILIRUBIN, URINE AUTO NEGATIVE (NEGATIVE); BLOOD, URINE BLOOD 1+ (NEGATIVE); COLOR, URINE YELLOW (YELLOW); GLUCOSE, URINE (UA) AUTO NEGATIVE (NEGATIVE); KETONE, URINE AUTO NEGATIVE (NEGATIVE); LEUKOCYTE ESTERASE, URINE AUTO NEGATIVE (NEGATIVE); MUCUS, URINE SMALL (NEGATIVE); NITRITE, URINE AUTO NEGATIVE (NEGATIVE); PROTEIN, URINE AUTO NEGATIVE (NEGATIVE); RBC, URINE AUTO 4 /HPF (0-3); SPECIFIC GRAVITY URINE AUTO 1.026 (1.002-1.035); SQUAMOUS EPITHELIAL CELL UR AU 1 /HPF (0-6); UROBILINOGEN, URINE AUTO 0.2 mg/dL (0.0-2.0); WBC, URINE AUTO 0 /HPF (0-3)
[2022-07-20 14:16] LABS: BASO # 0.1 10^3/uL (0.0-0.2); BASO % 0.4 % (0.0-1.0); EOS # 0.4 10^3/uL (0.0-0.5); EOS % 2.9 % (0.0-3.0); HEMATOCRIT 43.5 % (36.0-47.0); LYMPH # 2.6 10^3/uL (1.5-5.0); LYMPH % 17.9 % (24.0-44.0); MEAN CORPUSCULAR HEMOGLOBIN 30.2 pg (27.0-33.0); MEAN CORPUSCULAR HGB CONC 32.2 g/dl (32.0-36.5); MEAN CORPUSCULAR VOLUME 93.8 fl (80.0-96.0); MONO % 7.1 % (2.0-8.0); NEUTROPHILS # 10.4 10^3/uL (1.5-8.5); NEUTROPHILS % 71.2 % (36.0-66.0); PLATELET COUNT, AUTOMATED 397 10^3/uL (150-450); RED BLOOD COUNT 4.64 10^6/uL (4.00-5.40); WHITE BLOOD COUNT 14.7 10^3/uL (4.0-10.0)
[2022-07-20 14:41] LABS: ALKALINE PHOSPHATASE 127 U/L (46-116); ALT/SGPT 25 U/L (7.0-40); AST/SGOT 26 U/L (<34); BILIRUBIN,TOTAL 0.5 MG/DL (0.3-1.2); BLOOD UREA NITROGEN 18 MG/DL (9-23); CALCIUM LEVEL 9.8 MG/DL (8.5-10.1); CARBON DIOXIDE LEVEL 28 MMOL/L (20-31); CHLORIDE LEVEL 105 MMOL/L (98-107); CHOLESTEROL LEVEL 147 MG/DL (<200); CHOLESTEROL RISK RATIO 3.53 (<5); CREATININE FOR GFR 0.56 MG/DL (0.55-1.30); FREE T4 0.95 NG/DL (0.89-1.76); GLOMERULAR FILTRATION RATE > 60.0 (>60); GLUCOSE, FASTING 91 MG/DL (60-100); HDL CHOLESTEROL 41.6 MG/DL (>40); LDL CHOLESTEROL 79.2 MG/DL (<100); NON-HDL-C 105.4 MG/DL; POTASSIUM SERUM 4.3 MMOL/L (3.5-5.1); SODIUM LEVEL 140 MMOL/L (136-145); THYROID STIMULATING HORMONE 0.969 uIU/ML (0.55-4.78); TOTAL PROTEIN 7.8 G/DL (5.7-8.2); TRIGLYCERIDES LEVEL 131 MG/DL (<150)
[2022-07-20 14:44] LABS: VITAMIN B12 LEVEL 345 PG/ML (211-911)
[2022-07-20 14:45] LABS: TOTAL 25(OH) VITAMIN D 35.3 NG/ML (20.0-100.0)
[2022-07-20 14:48] LABS: FOLATE > 24.00 NG/ML (>5.4)
[2022-07-20 15:47] LABS: HEMOGLOBIN A1c 5.1 % (4.0-6.0)
== END ==
LOC: M WUC 09:29
PROVIDERS: ATTEND Physician Assistant
DX: Z86.32 Personal history of gestational diabetes (principal); R53.83 Other fatigue

== ENCOUNTER → 2022-08-07 | Outpatient (CLI) | payer OTHER ==
[2022-08-07 13:00] LABS: BASO # 0.1 10^3/uL (0.0-0.2); BASO % 0.5 % (0.0-1.0); EOS # 0.2 10^3/uL (0.0-0.5); EOS % 1.6 % (0.0-3.0); HEMATOCRIT 39.7 % (36.0-47.0); HEMOGLOBIN 12.9 g/dl (12.0-15.5); LYMPH # 2.4 10^3/uL (1.5-5.0); LYMPH % 19.7 % (24.0-44.0); MEAN CORPUSCULAR HEMOGLOBIN 29.9 pg (27.0-33.0); MEAN CORPUSCULAR HGB CONC 32.5 g/dl (32.0-36.5); MEAN CORPUSCULAR VOLUME 92.1 fl (80.0-96.0); MONO # 0.8 10^3/uL (0.0-0.8); MONO % 6.7 % (2.0-8.0); NEUTROPHILS # 8.5 10^3/uL (1.5-8.5); NEUTROPHILS % 71.1 % (36.0-66.0); PLATELET COUNT, AUTOMATED 421 10^3/uL (150-450); RED BLOOD COUNT 4.31 10^6/uL (4.00-5.40); WHITE BLOOD COUNT 11.9 10^3/uL (4.0-10.0)
[2022-08-07 13:01] LABS: APPEARANCE, URINE CLEAR (CLEAR); BACTERIA, URINE AUTO NEGATIVE (NEGATIVE); BILIRUBIN, URINE AUTO NEGATIVE (NEGATIVE); BLOOD, URINE BLOOD 1+ (NEGATIVE); COLOR, URINE YELLOW (YELLOW); GLUCOSE, URINE (UA) AUTO NEGATIVE (NEGATIVE); KETONE, URINE AUTO NEGATIVE (NEGATIVE); LEUKOCYTE ESTERASE, URINE AUTO NEGATIVE (NEGATIVE); MUCUS, URINE SMALL (NEGATIVE); NITRITE, URINE AUTO NEGATIVE (NEGATIVE); PROTEIN, URINE AUTO NEGATIVE (NEGATIVE); RBC, URINE AUTO 0 /HPF (0-3); SPECIFIC GRAVITY URINE AUTO 1.021 (1.002-1.035); SQUAMOUS EPITHELIAL CELL UR AU 1 /HPF (0-6); UROBILINOGEN, URINE AUTO 0.2 mg/dL (0.0-2.0); WBC, URINE AUTO 0 /HPF (0-3)
[2022-08-07 13:29] LABS: RHEUMATOID FACTOR QUANT < 3.5 IU/ML (<14)
[2022-08-07 14:01] LABS: CPK CREATINE PHOSPHOKINASE 64 U/L (34-145)
== END ==
LOC: M WUC 10:33
PROVIDERS: ATTEND Physician Assistant
DX: M25.50 Pain in unspecified joint (principal)

== ENCOUNTER → 2022-08-10 | Outpatient (REF) | payer OTHER ==
[~2022-08-10] MED LIST changes: +DEBL1TAB
== END ==
LOC: M SFHCPLAZ 17:04
PROVIDERS: ATTEND Physician Assistant
DX: J02.9 Acute pharyngitis, unspecified (principal)

== ENCOUNTER → 2022-10-16 | Outpatient (REF) | payer OTHER | LOC: M PLALAB 13:11 | PROVIDERS: ATTEND Advanced Practice Midwife | DX: Z01.419 Encounter for gynecological examination (general) (routine) without abnormal findings (principal); Z12.4 Encounter for screening for malignant neoplasm of cervix ==

== ENCOUNTER → 2023-04-16 | Outpatient (REF) | payer OTHER | LOC: M LAB REF 12:20 | PROVIDERS: ATTEND Nurse Practitioner Family | DX: R30.0 Dysuria (principal) ==

== ENCOUNTER → 2023-07-19 | Outpatient (CLI) | payer OTHER ==
[2023-07-19 13:32] LABS: BASO % 0.3 % (0.0-1.0); EOS # 0.3 10^3/uL (0.0-0.5); EOS % 1.9 % (0.0-3.0); HEMATOCRIT 42.2 % (36.0-47.0); LYMPH % 15.4 % (24.0-44.0); MEAN CORPUSCULAR HEMOGLOBIN 31.4 pg (27.0-33.0); MEAN CORPUSCULAR HGB CONC 33.2 g/dl (32.0-36.5); MEAN CORPUSCULAR VOLUME 94.6 fl (80.0-96.0); MONO # 0.9 10^3/uL (0.0-0.8); MONO % 6.7 % (2.0-8.0); NEUTROPHILS # 9.7 10^3/uL (1.5-8.5); NEUTROPHILS % 75.4 % (36.0-66.0); PLATELET COUNT, AUTOMATED 381 10^3/uL (150-450); RED BLOOD COUNT 4.46 10^6/uL (4.00-5.40); WHITE BLOOD COUNT 12.9 10^3/uL (4.0-10.0)
[2023-07-19 13:54] LABS: HEMOGLOBIN A1c 4.8 % (4.0-6.0)
[2023-07-19 13:56] LABS: ERYTHROCYTE SEDIMENTATION RATE 18 mm/hr (0-20)
[2023-07-19 14:11] LABS: HCG, SERUM QUALITATIVE NEGATIVE (NEGATIVE)
[2023-07-19 14:14] LABS: ALBUMIN 3.9 G/DL (3.2-5.2); ALKALINE PHOSPHATASE 92 U/L (46-116); ALT/SGPT 26 U/L (7.0-40); AST/SGOT 15 U/L (<34); BILIRUBIN,TOTAL 0.5 MG/DL (0.3-1.2); BLOOD UREA NITROGEN 14 MG/DL (9-23); CALCIUM LEVEL 9.5 MG/DL (8.5-10.1); CARBON DIOXIDE LEVEL 26 MMOL/L (20-31); CHLORIDE LEVEL 106 MMOL/L (98-107); CHOLESTEROL LEVEL 156 MG/DL (<200); CREATININE FOR GFR 0.68 MG/DL (0.55-1.30); FREE T4 0.94 NG/DL (0.89-1.76); GLOMERULAR FILTRATION RATE > 60.0 (>60); GLUCOSE, FASTING 96 MG/DL (60-100); HDL CHOLESTEROL 43.3 MG/DL (>40); LDL CHOLESTEROL 77.3 MG/DL (<100); LUTEINIZING HORMONE 12.6 mIU/ML; NON-HDL-C 112.7 MG/DL; POTASSIUM SERUM 4.2 MMOL/L (3.5-5.1); SODIUM LEVEL 140 MMOL/L (136-145); THYROID STIMULATING HORMONE 1.069 uIU/ML (0.55-4.78); TOTAL PROTEIN 6.9 G/DL (5.7-8.2); TRIGLYCERIDES LEVEL 177 MG/DL (<150)
[2023-07-20 16:13] LABS: TESTOSTERONE FREE (DIRECT) 1.8 pg/mL (0.0-4.2)
== END ==
LOC: M PLAIMG 09:25
PROVIDERS: ATTEND Physician Assistant
DX: M54.6 Pain in thoracic spine (principal); M54.50 Low back pain, unspecified; Z13.29 Encounter for screening for other suspected endocrine disorder; Z13.220 Encounter for screening for lipoid disorders; G61.0 Guillain-Barre syndrome; N92.6 Irregular menstruation, unspecified

== ENCOUNTER → 2024-04-21 | Outpatient (CLI) | payer OTHER ==
[~2024-04-21] MED LIST changes: +GABA-1635; -GABA800T4
[2024-04-21 15:29] LABS: HEMOGLOBIN A1c 4.9 % (4.0-6.0)
[2024-04-21 15:33] LABS: FREE T4 1.23 NG/DL (0.89-1.76); PROLACTIN 4.25 NG/ML
[2024-04-21 15:52] LABS: HEPATITIS B SURFACE ANTIGEN NEGATIVE (NEGATIVE)
[2024-04-21 16:03] LABS: HIV 1&2 SCREEN NEGATIVE (NEGATIVE)
[2024-04-21 16:11] LABS: HEPATITIS C VIRUS ABY INDEX < 0.02 INDEX (<0.8)
[2024-04-21 16:12] LABS: HEPATITIS B CORE ANTIBODY IGM NEGATIVE (NEGATIVE)
[2024-04-21 20:51] LABS: GC DNA AMPLIFICATION NEGATIVE (NEGATIVE)
[2024-04-23 03:23] LABS: DEHYDROEPIANDROSTERONE SULFATE 263 mcg/dL (14-349)
[2024-04-24 13:26] LABS: HPV APTIMA Not Detected (Not Detected)
[2024-04-24 17:38] LABS: HSV SOURCE Serum; HSV-1 DNA Not Detected (Not Detected); HSV-2 DNA Not Detected (Not Detected)
[2024-04-27 15:47] LABS: TESTOSTERONE FREE (DIRECT) 5.1 pg/mL (0.1-6.4); TESTOSTERONE TOTAL FOR T&D 31 ng/dL (2-45)
[2024-04-27 19:51] LABS: 17 HYDROXY PROGESTERONE 128 ng/dL
== END ==
LOC: M PLALAB 12:51
PROVIDERS: ATTEND Nurse Practitioner Family
DX: N92.6 Irregular menstruation, unspecified (principal)

== ENCOUNTER → 2024-06-19 | Outpatient (CLI) | payer OTHER | LOC: M WHC 13:44 | PROVIDERS: ATTEND Nurse Practitioner Family | DX: N92.6 Irregular menstruation, unspecified (principal) ==